=== PATIENT | female | born 1965 ===

== ENCOUNTER 2018-06-12 14:20 | Emergency (ER) | payer SELFPAY ==
[2018-06-12 14:51] VITALS: BP 131/82
--- NOTE | 2018-06-12 15:07 | UC ---
Complaint Female HPI - HPI Summary HPI Summary: 53 y/o female presents to the urgent care c/o frequency on urination and mild left side abdominal pain since 06/09/2018. Pt reports Hx of recurrent UTI's and Pyelonephritis. Her urine is dark and her UTIs usually starts w/ frequency and mil diarrhea. Pt lives in [place] and is here visiting. She is here visiting her sister. While on the plane symptoms started and she thinks she pulled a muscle while lifting her bag. Pt states vomited once yesterday. Pain is 3/10 dull on urination or when she moves to the left side or lifts something. Pt had a recent abdominal CT doen by her PCP in [place] to r/o diverticulitis which was negative. Pt denies Vaginal discharge, Hx of STD's, SOB, chest pain,. She has taking Advil PM and symptoms improve and she has been able to sleep well. - History Of Current Complaint Chief Complaint: UCAbdominalPain Stated Complaint: URINARY COMPLAINT Time Seen by Provider: 06/12/18 15:04 Hx Obtained From: Patient Onset/Duration: Gradual Onset, Lasting Days - 3 days, Still Present Timing: Intermittent Severity Initially: Mild Severity Currently: Mild Pain Intensity: 3 Pain Scale Used: 0-10 Numeric Character: Burning Aggravating Factor(s): Urination Alleviating Factor(s): Meds - Advil PO Associated Signs And Symptoms: Positive: Nausea, Vomiting(# Of Episodes =) - 1 episode yesterday. Negative: Fever, Back Pain, Vaginal Bleeding/Discharge, Vaginal Discharge, Genital Swelling, Genital Blisters - Risk Factors Ectopic Risk Factor: Negative Ovarian Torsion Risk Factor: Negative - Allergies/Home Medications Allergies/Adverse Reactions: Allergies Allergy/AdvReac Type Severity Reaction Status Date / Time Sulfa (Sulfonamide Allergy Rash Verified 06/12/18 14:51 Antibiotics) Home Medications: Home Medications Candesartan Cilexetil 1 tab PO DAILY 06/12/18 [History Confirmed 06/12/18] Desloratidine (NF) [Clarinex (NF)] 1 tab PO DAILY 06/12/18 [History Confirmed ] Omeprazole CAP* [Prilosec CAP* 20 MG] 1 tab PO DAILY 06/12/18 [History Confirmed 06/12/18] Venlafaxine EXT RELEASE CAP* [Effexor Xr CAP*] 3 cap PO DAILY 06/12/18 [History Confirmed 06/12/18] PMH/Surg Hx/FS Hx/Imm Hx - Additional Past Medical History Additional PMH: MRSA Previously Healthy: Yes Cardiovascular History: Hypertension Psychological History: Anxiety, Depression - Surgical History Surgery Procedure, Year, and Place: Nasal polyps - Family History Known Family History: Positive: Diabetes - Social History Occupation: Employed Full-time Lives: With Family Alcohol Use: Rare Substance Use Type: Prescribed Smoking Status (MU): Never Smoked Tobacco Review of Systems Constitutional: Negative Skin: Negative Eyes: Negative ENT: Negative Respiratory: Negative Cardiovascular: Negative Gastrointestinal: Vomiting - onece yesterday, Diarrhea - loose stool, Nausea Genitourinary: Dysuria, Frequency, Urgency Motor: Negative Neurovascular: Negative Musculoskeletal: Negative Neurological: Negative Psychological: Negative Is Patient Immunocompromised?: No All Other Systems Reviewed And Are Negative: Yes Physical Exam - Summary Physical Exam Summary: VITAL SIGNS: Reviewed. GENERAL: Patient is a well developed and nourished obese female who is sitting comfortable in the examining table. Patient is not in any acute respiratory distress. HEAD AND FACE: No signs of trauma. No ecchymosis, hematomas or skull depressions. No sinus tenderness. EYES: PERRLA, EOMI x 2, No injected conjunctiva, clear watery eyes, no nystagmus. No photophobia. EARS: Hearing grossly intact. Ear canals and tympanic membranes are within normal limits. MOUTH: pharynx with no erythema, no exudates,no palatal petechiae. no B/L tonsillar enlargement Uvula in midline. NECK: Supple, trachea is midline, no lymphadenopathy, no JVD, no carotid bruit, no c-spine tenderness, neck with full ROM. CHEST: Symmetric, no tenderness at palpation LUNGS: Clear to auscultation bilaterally. No wheezing or crackles. CVS: Regular rate and rhythm, S1 and S2 present, no murmurs or gallops appreciated. Abdomen Description: Nontender, - Abd: Flat with no distention. No surface trauma, scars, incisions. hyperactive bowel sounds present in all four quadrants. No tenderness, guarding, rigidity to palpation. No masses palpated, no pulsation in epigastric area. No organomegaly. Negative White signs. No periumbilical tenderness. No rebound in the lower quadrants. NT over McBurneys point. Left side suprapubic tenderness with no distension. Good femoral pulses bilaterally. No hernia noted. No CVAT bilaterally. point tenderness over the iliac creast w/o any swelling or bruising, BACK:no scoliosis or lesions, non tender to palpation, No B/L CVA tenderness EXTREMITIES: FROM in all major joints, no edema, no cyanosis or clubbing. NEURO: Alert and oriented x 3. No acute neurological deficits. Speech is normal and follows commands. SKIN: Dry and warm Triage Information Reviewed: Yes Vital Signs: Initial Vital Signs Temp 98.4 F 06/12/18 14:47 Pulse 96 06/12/18 14:47 Resp 12 06/12/18 14:47 BP 131/82 06/12/18 14:47 Pulse Ox 96 06/12/18 14:47 Complaint Female Dx - Course Course Of Treatment: 53 y/o female presents to the urgent care c/o frequency on urination and mild left side abdominal pain since 06/09/2018. Pt reports Hx of recurrent UTI's and Pyelonephritis. Her urine is dark and her UTIs usually starts w/ frequency and mil diarrhea. Pt lives in [place] and is here visiting her sister. While on the plane symptoms started and she thinks she pulled a muscle while lifting her bag. Pt states vomited once yesterday. Pain is 3/10 dull on urination or when she moves to the left side or lifts something. Pt had a recent abdominal CT done by her PCP in [place] to r/o diverticulitis which was negative. Pt denies Vaginal discharge, Hx of STD's, SOB, chest pain,. She has taking Advil PM and symptoms improve and she has been able to sleep well. Hx obtained. PE: WNL, except for point tenderness over the iliac creast w/o any swelling or bruising,, No B/L CVA tenderness on examination. UA ordered:+1 leukoesteraces. However Pt denies any vaginal d/c. Pt declines Plevic exam. At this momement No US available and pt offered Abdominal CT to R/o ay LLQ abdominal etiology. Pt declined and requested Urine to be sent for culture since she thinks she has a UTI. Urine sent for culture. Pt will be notified. Pt Rx Pyridium PO to alleviate dysuria and Ibuprofen PO for pain. D/C instructions explained. Pt understood and agreed and Pt left clinic ambulating and hemodynamically stable. - Differential Dx/Diagnosis Differential Diagnosis/HQI/PQRI: Cervicitis, Ovarian Cyst, Ovarian Torsion, Pelvic Inflammatory Disease, Renal Colic, Ureteral Stone, Urinary Tract Infection, Other - diverticulitis Provider Diagnoses: 1- Dysuria. 2- Left side Musculoskeltal pain Discharge - Sign-Out/Discharge Documenting (check all that apply): Patient Departure - D/C home - Discharge Plan Condition: Stable Disposition: HOME Prescriptions: Ibuprofen TAB* [Motrin TAB* 800 MG] 800 mg PO Q6H PRN #30 tab PRN Reason: Pain Phenazopyridine TAB* [Pyridium 100 mg TAB*] 100 mg PO TID #6 tab Patient Education Materials: Dysuria (ED) Referrals: [facility] [[facility]] - If Needed Additional Instructions: 1- Please take Pyridium 100 mg PO TID x 2 days to alleviate urinary symptoms. Increase increase fluid intake. drink cranberry juice. 2-Take Ibuprofen PO q6-8hrs prn to alleviate muscle skeletal pain. 2-Urine sent for culture if any abnormality, you will be notified for further treatment. 3-If symptoms do not improve and you develop severe abdominal pain, and vomiting please go immediately to the ER for further management. - Billing Disposition and Condition Condition: STABLE Disposition: Home
== END 2018-06-12 15:43 | disposition home or self-care (01) ==
LOC: UCEAST 14:20
DX: R30.0 Dysuria (principal); R10.32 Left lower quadrant pain; R11.2 Nausea with vomiting, unspecified; Z87.440 Personal history of urinary (tract) infections; I10 Essential (primary) hypertension; F41.9 Anxiety disorder, unspecified; F32.9 Major depressive disorder, single episode, unspecified; Z86.14 Personal history of Methicillin resistant Staphylococcus aureus infection; Z88.2 Allergy status to sulfonamides
CPT/HCPCS: 81003; 87086; 99202; G0463